=== PATIENT | female | born 2000 | race Caucasian/White ===

== ENCOUNTER → 2022-02-20 | Outpatient (CLI) | payer OTHER ==
[2022-02-20 10:07] LABS: HEMOGLOBIN 13.4 gm/dl (12.3-15.3); RED BLOOD COUNT 4.36 M/UL (4.00-5.10); WHITE BLOOD COUNT 5.8 K/UL (4.5-11.0)
[2022-02-20 10:30] LABS: BUN/CREATININE RATIO 16 (0-10)
[2022-02-21 07:12] LABS: VITAMIN D, 25-HYDROXY 28.4 ng/mL (30.0-100.0)
[2022-02-21 13:12] LABS: RUBELLA ANTIBODIES, IGG 8.18 index (Immune >0.99)
[2022-02-22 23:09] LABS: QUANTIFERON MITOGEN VALUE >10.00 IU/mL (.); QUANTIFERON NIL VALUE 0.01 IU/mL (.); QUANTIFERON TB1 AG VALUE 0.02 IU/mL (.); QUANTIFERON TB2 AG VALUE 0.03 IU/mL (.); QUANTIFERON-TB GOLD PLUS Negative (Negative)
== END ==
LOC: LAB 09:41
PROVIDERS: Nurse Practitioner Family
DX: M25.50 Pain in unspecified joint (principal); R00.2 Palpitations; E78.5 Hyperlipidemia, unspecified; R53.83 Other fatigue; E53.8 Deficiency of other specified B group vitamins; E55.9 Vitamin D deficiency, unspecified; Z01.84 Encounter for antibody response examination; Z78.9 Other specified health status; Z11.1 Encounter for screening for respiratory tuberculosis
CPT/HCPCS: 36415; 80053; 80061; 82607; 84439; 84443; 85025; 86762; 86787

== ENCOUNTER 2022-04-09 11:40 | Emergency (ER) | payer OTHER ==
[2022-04-09 12:37] LABS: HEMOGLOBIN 13.7 gm/dl (12.3-15.3); RED BLOOD COUNT 4.42 M/UL (4.00-5.10)
[2022-04-09 13:24] LABS: BUN/CREATININE RATIO 13 (0-10)
[2022-04-09] MEDS ORDERED: ZOFRAN ODT 4 MG4 MG GT (16:12)
[2022-04-09] MEDS ORDERED: PHENERGAN 25 MG25 M1 PO (16:12)
== END 2022-04-09 16:02 | disposition home or self-care (01) ==
LOC: ER1 11:40
PROVIDERS: Physician Assistant
DX: R11.2 Nausea with vomiting, unspecified (principal); R19.7 Diarrhea, unspecified; M54.50 Low back pain, unspecified; R00.0 Tachycardia, unspecified; R10.813 Right lower quadrant abdominal tenderness
CPT/HCPCS: 80053; 81001; 84703; 85025; 96361; 96374; 99284; J2405; J7120